=== PATIENT | male | born 1950 | race Caucasian/White ===

== ENCOUNTER 2021-03-09 12:32 | Emergency (ER) | payer MEDICARE, BC, OTHER ==
[~2021-03-09] VITALS: Ht 170.2 cm; Wt 111.4 kg
--- NOTE | 2021-03-09 13:10 | NUR ---
PT HAS CO CHEST PAIN SINCE THIS AM W BLOATING. TOOK TUMS W RELIEF. PAIN FEELS LIKE A PULLED MUSCLE W CHEST PAIN. DENIES, N/V OR FEVERS. HX OF HTN. PT ON CARD MONITOR. SEEN BY MD DUTTON
[2021-03-09 13:57] LABS: BASOPHILS % (AUTO) 0 % (0-1); EOSINOPHILS % (AUTO) 0 % (1-7); LYMPHOCYTES % (AUTO) 6 % (22-44); MEAN CORPUSCULAR HGB CONC 34.3 g/dL (33.2-36.2); MEAN PLATELET VOLUME 7.9 fL (7.4-10.4); MONOCYTES % (AUTO) 10 % (2-9); NEUTROPHILS % (AUTO) 83 % (42-75); PLATELET COUNT 219 x10^3/uL (130-400); RED CELL DISTRIBUTION WIDTH 13.3 % (9.4-14.8)
[2021-03-09 14:09] LABS: ALANINE AMINOTRANSFERASE 36 U/L (12-78); ALBUMIN 3.6 g/dL (3.4-5.0); ANION GAP 4 mmol/L (5-15); CALCIUM 8.2 mg/dL (8.5-10.1); CHLORIDE 104 mmol/L (98-107); CREATININE 0.74 mg/dL (0.7-1.3)
[2021-03-09 14:13] LABS: ALKALINE PHOSPHATASE 89 U/L (45-117); BILIRUBIN,TOTAL 0.5 mg/dL (0.2-1.0); TOTAL PROTEIN 7.3 g/dL (6.4-8.2); TROPONIN I < 0.015 ng/mL (0.000-0.045)
[2021-03-09 14:29] LABS: MD SCAN
--- NOTE | 2021-03-09 15:34 | NUR ---
IV ESTABLISHED FOR CTA
[2021-03-09] MEDS ORDERED: OMNIPAQUE 350 MG/ML, 75ML BOTTLE ONE (15:49)
--- NOTE | 2021-03-09 16:00 | NUR ---
PT BACK FROM [facility]A. AWAITING RESULTS. DENIES CP
[2021-03-09 16:22] VITALS: BP 149/63
--- NOTE | 2021-03-09 16:48 | NUR ---
Patient given discharge instructions and they have confirmed that they understand the instructions. Patient ambulatory with steady gait.
== END 2021-03-09 16:50 | disposition home or self-care (01) ==
LOC: ED 13:50
DX: I10 Essential (primary) hypertension (principal); D72.829 Elevated white blood cell count, unspecified; R91.1 Solitary pulmonary nodule; R07.9 Chest pain, unspecified
CPT/HCPCS: 36415; 71045; 71275; 80053; 84484; 85025; 85379; 93005; 99285; Q9967